=== PATIENT | male | born 1945 ===

== ENCOUNTER 2020-11-16 07:58 | Outpatient (REF) | payer MEDICARE, SELFPAY ==
[2020-11-16 09:27] LABS: Alanine Aminotransferase 26 U/L (0-40); Albumin Level 4.4 g/dL (3.5-5.0); Alkaline Phosphatase 131 U/L (39-117); Anion Gap 11 (12-20); Aspartate Amino Transferase 24 U/L (5-37); Bilirubin Total 0.6 mg/dL (0.0-1.0); Blood Urea Nitrogen 11 mg/dL (9-16); Calcium 8.8 mg/dL (8.4-10.2); Carbon Dioxide 28 mmol/L (22-29); Chloride 102 mmol/L (96-108); Cholesterol 170 mg/dL; Estimated Glomerular Filt Rate > 60; Glucose Fasting 178 mg/dL (60-99); HDL Cholesterol 40 mg/dL; LDL Cholesterol Calculated 103 mg/dl; Potassium 4.6 mmol/L (3.3-5.1); Sodium 136 mmol/L (135-145); Total Protein 7.2 g/dL (6.5-8.0); Triglycerides 137 mg/dL
== END 2020-11-16 07:59 | disposition home or self-care (01) ==
LOC: HO.LAB 07:58
PROVIDERS: PCP Internal Medicine; Visit Provider Internal Medicine
DX: E11.9 Type 2 diabetes mellitus without complications (principal)
CPT/HCPCS: 36415; 80053; 80061

== ENCOUNTER 2020-12-30 07:59 | Outpatient (REF) | payer MEDICARE, SELFPAY ==
[2020-12-30 08:30] LABS: COVID-19 Test Negative (Negative)
== END 2020-12-30 08:00 | disposition home or self-care (01) ==
LOC: HO.LAB 07:59
PROVIDERS: Visit Provider Internal Medicine
DX: Z20.822 Contact with and (suspected) exposure to COVID-19 (principal)
CPT/HCPCS: 36415; 87635; C9803

== ENCOUNTER 2021-06-11 08:32 | Outpatient (REF) | payer MEDICARE, SELFPAY ==
[2021-06-11 09:43] LABS: Prostate Specific Antigen 0.31 ng/mL (<0.05-4.0)
== END 2021-06-11 08:33 | disposition home or self-care (01) ==
LOC: HO.LAB 08:32
PROVIDERS: PCP Internal Medicine; Visit Provider Nurse Practitioner Family
DX: Z12.5 Encounter for screening for malignant neoplasm of prostate (principal)
CPT/HCPCS: 36415; 84153

== ENCOUNTER 2021-07-23 09:25 | Outpatient (REF) | payer MEDICARE, SELFPAY ==
--- NOTE | ~2021-07-23 | XR_ITS ---
EXAMINATION: XR HIP, LEFT CLINICAL INFORMATION: Trochanteric bursitis COMPARISON: None TECHNIQUE: Two views of the left hip. FINDINGS: Bone alignment is normal. No fracture or dislocation is seen. The joint space is normal. Soft tissues are normal. XR/XR hip LT min 2V IMPRESSION: Normal left hip.
== END 2021-07-23 09:26 | disposition home or self-care (01) ==
LOC: HO.XRAY 09:25
PROVIDERS: PCP Internal Medicine; Visit Provider Internal Medicine
DX: M70.62 Trochanteric bursitis, left hip (principal)
CPT/HCPCS: 73502

== ENCOUNTER → 2021-08-18 10:04 | Outpatient (BNVA) | payer MEDICARE, SELFPAY | PROVIDERS: PCP Internal Medicine; Visit Provider Orthopaedic Surgery | DX: M53.3 Sacrococcygeal disorders, not elsewhere classified (principal); G89.29 Other chronic pain | CPT/HCPCS: 99202 ==

== ENCOUNTER 2021-09-21 09:08 | Outpatient (REF) | payer MEDICARE, SELFPAY ==
[2021-09-21 10:43] LABS: COVID-19 Test Positive (Negative); IDNOW Serial# 16C4AD1C
== END 2021-09-21 09:09 | disposition home or self-care (01) ==
LOC: HO.LAB 09:08
PROVIDERS: Visit Provider Internal Medicine
DX: Z20.822 Contact with and (suspected) exposure to COVID-19 (principal)
CPT/HCPCS: 87635; C9803

== ENCOUNTER 2021-10-03 08:15 | Outpatient (REF) | payer MEDICARE, SELFPAY ==
[2021-10-03 11:29] LABS: Binax Internal Control QC Valid; Binax Now Covid-19 Ag Negative (Negative)
== END 2021-10-03 08:16 | disposition home or self-care (01) ==
LOC: HO.LAB 08:15
PROVIDERS: Visit Provider Internal Medicine
DX: Z20.822 Contact with and (suspected) exposure to COVID-19 (principal)
CPT/HCPCS: C9803

== ENCOUNTER 2022-05-01 09:16 | Outpatient (REF) | payer OTHER, SELFPAY ==
[2022-05-01 10:16] LABS: Alanine Aminotransferase 21 U/L (0-40); Albumin Level 4.2 g/dL (3.5-5.0); Alkaline Phosphatase 126 U/L (39-117); Anion Gap 12 (12-20); Aspartate Amino Transferase 21 U/L (5-37); Bilirubin Total 0.4 mg/dL (0.0-1.0); Blood Urea Nitrogen 11 mg/dL (9-16); Carbon Dioxide 28 mmol/L (22-29); Chloride 102 mmol/L (96-108); Cholesterol 155 mg/dL; Estimated Glomerular Filt Rate > 60; Glucose Fasting 173 mg/dL (60-99); HDL Cholesterol 43 mg/dL; LDL Cholesterol Calculated 96 mg/dl; Potassium 4.9 mmol/L (3.3-5.1); Sodium 137 mmol/L (135-145); Total Protein 6.9 g/dL (6.5-8.0); Triglycerides 80 mg/dL
== END 2022-05-01 09:17 | disposition home or self-care (01) ==
LOC: HO.LAB 09:16
PROVIDERS: PCP Internal Medicine; Visit Provider Internal Medicine
DX: E11.65 Type 2 diabetes mellitus with hyperglycemia (principal); E78.5 Hyperlipidemia, unspecified
CPT/HCPCS: 36415; 80053; 80061

== ENCOUNTER 2022-08-25 08:08 | Outpatient (REF) | payer OTHER, SELFPAY ==
[2022-08-25 09:25] LABS: Prostate Specific Antigen 0.38 ng/mL (<0.05-4.0)
[2022-08-25 09:40] LABS: Creatinine Urine 62.94 mg/dL; Microalbumin Urine < 5.0 mg/L
== END 2022-08-25 08:09 | disposition home or self-care (01) ==
LOC: HO.LAB 08:08
PROVIDERS: PCP Internal Medicine; Visit Provider Nurse Practitioner Family
DX: E11.9 Type 2 diabetes mellitus without complications (principal); Z12.5 Encounter for screening for malignant neoplasm of prostate
CPT/HCPCS: 36415; 82043; 84153

== ENCOUNTER 2022-12-16 07:40 | Outpatient (REF) | payer OTHER, SELFPAY ==
[2022-12-16 08:46] LABS: Estimated Average Glucose 143 mg/dL; Hemoglobin A1c % 6.6 %
[2022-12-16 09:08] LABS: Alanine Aminotransferase 22 U/L (0-40); Albumin Level 4.3 g/dL (3.5-5.0); Alkaline Phosphatase 109 U/L (39-117); Anion Gap 12 (12-20); Aspartate Amino Transferase 25 U/L (5-37); Bilirubin Total 0.6 mg/dL (0.0-1.0); Blood Urea Nitrogen 12 mg/dL (9-16); Calcium 9.2 mg/dL (8.4-10.2); Carbon Dioxide 28 mmol/L (22-29); Chloride 106 mmol/L (96-108); Cholesterol 158 mg/dL; Estimated Glomerular Filt Rate > 60; Glucose Fasting 94 mg/dL (60-99); HDL Cholesterol 38 mg/dL; LDL Cholesterol Calculated 103 mg/dl; Potassium 4.8 mmol/L (3.3-5.1); Sodium 141 mmol/L (135-145); Total Protein 6.8 g/dL (6.5-8.0); Triglycerides 89 mg/dL
[2022-12-16 09:26] LABS: TSH reflex Free T4 2.56 uIU/mL (0.32-4.0)
== END 2022-12-16 07:41 | disposition home or self-care (01) ==
LOC: HO.LAB 07:40
PROVIDERS: PCP Internal Medicine; Visit Provider Nurse Practitioner Family
DX: E11.65 Type 2 diabetes mellitus with hyperglycemia (principal); E78.00 Pure hypercholesterolemia, unspecified
CPT/HCPCS: 36415; 80053; 80061; 83036; 84443

== ENCOUNTER 2023-04-12 14:10 | Emergency (ER) | payer OTHER, SELFPAY ==
[2023-04-12 14:36] VITALS: BP 150/66; PULSE 73; RESP 18; TEMP 36.9; O2SAT 97; BMI 30.8
--- NOTE | 2023-04-12 14:38 | ED_ITS ---
HPI - General Adult General Chief complaint: General Medical Stated complaint: body aches sore throat fever Time Seen by Provider: 04/12/23 15:52 Source: patient and family Mode of arrival: ambulatory Limitations: no limitations History of Present Illness HPI narrative: 77-year-old male with history of obesity, HLD, HTN, DM, GERD who presents to the ER for evaluation of 6 days of not feeling well. He reports subjective fevers and chills at home along with body aches, headache, abdominal discomfort and decreased p.o. intake. He is here with for other family members who have similar symptoms. He states he was the 1st 1 to get ill. He is vaccinated for COVID-19 x2. He denies any shortness of breath or chest pain. No vomiting or diarrhea. MD complaint: COVID symptoms Onset (ago): day(s) (6) Location: head, back and abdomen Radiation: non-radiation Severity: moderate Quality: aching Pain Consistency: intermittent Relieving factors: none Exacerbating factors: none Associated symptoms: fever/chills, headaches, loss of appetite, malaise and weakness Treatments prior to arrival: none Related Data Previous Rx's Medication Instructions Recorded diclofenac sodium 1 % topical gel 4 g topical QID #100 grams 07/15/21 (Voltaren Arthritis Pain) blood sugar diagnostic (Accu-Chek 1 strip miscellaneous QID #200 12/14/21 SmartView Test Strips) strips pen needle, diabetic 31 gauge x 1 ea subcut QID 25 days #100 ea 04/11/22 5/16 (BD Ultra-Fine Short Pen Needle) aspirin 81 mg tablet,delayed 81 mg PO DAILY 90 days #90 tabs 06/13/22 release (Adult Low Dose Aspirin) blood pressure monitor #1 ea 06/13/22 omeprazole 20 mg capsule,delayed 20 mg PO DAILY 90 days #90 caps 06/13/22 release Humalog KwikPen Insulin 100 15 unit (0.15 mL) subcut TID 30 09/27/22 unit/mL subcutaneous (insulin days #3 mL lispro) insulin glargine 100 unit/mL (3 48 unit (0.48 mL) subcut QPM 30 09/27/22 mL) subcutaneous pen (Lantus days #14.4 mL Solostar U-100 Insulin) metoprolol succinate 25 mg 25 mg PO DAILY 90 days #90 tabs 02/01/23 tablet,extended release 24 hr lisinopril 40 mg tablet 40 mg PO DAILY #90 tabs 02/12/23 rosuvastatin 10 mg tablet 10 mg PO DAILY 90 days #90 tabs 03/09/23 oxycodone-acetaminophen 5 mg-325 1 tab PO Q8H PRN pain 30 days #90 03/16/23 mg tablet tabs amlodipine 2.5 mg tablet 2.5 mg PO DAILY 90 days #90 tabs 04/01/23 Allergies Allergy/AdvReac Type Severity Reaction Status Date / Time No Known Allergies Allergy Verified 12/27/22 15:43 Review of Systems Review of Systems: Yes all other systems are reviewed and are negative [facility] Past Medical History Medical History BMI 31.0-31.9,adult Diabetes mellitus Essential hypertension GERD (gastroesophageal reflux disease) Lumbar degenerative disc disease Surgical History History of cholecystectomy History of eye surgery Family History Family History Father Throat cancer Mother Diabetes Myocardial infarction Sister Cancer Brother Myocardial infarction Cancer Social History Social History Housing: House Alcohol intake: never Patient Tobacco Use Status: Never used Tobacco e-Cigarette/Vaping Use: Never Used Second Hand Smoke Exposure: No Advance Directives: No Advance Directives Information Provided: No service: No Current occupational status: disabled Cognitive needs: No Hearing needs: No Vision needs: Yes Physical Exam ED Vital Signs: Vital Signs - 24 hr 04/12/23 14:36 Temperature 98.4 F Pulse Rate 73 Respiratory Rate 18 Blood Pressure 150/66 H Pulse Oximetry 97 Oxygen Delivery Method Room Air BMI result Body Mass Index 30.8 Appearance: Alert. Oriented X3. No acute distress. Head: normocephalic, atraumatic. Eyes: Pupils equal, round and reactive to light. ENT: Pharynx normal. No tonsillar swelling or exudate. Neck: Normal inspection. Neck supple. CVS: Normal heart rate and rhythm. Pulses normal. Respiratory: No respiratory distress. Breath sounds normal. Abdomen: Soft and nontender. +BS x4 Skin: Skin warm and dry. Normal skin color. Normal skin turgor. No rashes. Extremities: No lower extremity edema. No joint swelling. Neuro/psych: Oriented X 3. grossly normal, nonfocal. Normal speech and cognition. Course Course Course Narrative: This is an RME: Additional HPI, ROS, PE not included below will be deferred to primary provider. Thi is a [id number], with a history of HTN and DM, presenting with complaints of fevers, chills, generalized abdominal pain. No nausea, vomiting, diarrhea. Here with 5 other family members with similar symptoms. VSS. Plan: COVID swab, strep test Medical Decision Making Medical Decision Making [facility] Narrative: 77-year-old male with multiple medical problems including HTN, HLD, dm who presents to the ER for evaluation of 6 days of feeling unwell. Vital signs are stable and physical exam is unremarkable. Patient was found to have COVID-19. He is vaccinated. He does not qualify for paxlovid given duration of symptoms. at this time patient is stable for discharge home with supportive care and outpatient follow-up. We discussed return precautions and patient expressed understanding. Differential Diagnosis Differential Diagnoses: The differential diagnosis associated with the present ation includes strep, covid, flu, rsv, other viral syndrome, bronchitis, pneumonia, dehydration Admission/Observation Consideration of admission/observation: Escalation of care including admission/observation considered Elderly male with multiple medical problems and positive COVID-19 status, considered observation Lab Data [facility] Lab Attestation statement: I reviewed the patient's lab results. Labs: Lab Results 04/12/23 04/12/23 Range/Units 15:13 15:13 COVID-19 (MERY) Positive A (Negative) COVID-19 Clin Com See Note S. pyogenes GrpA JOSE Negative (Negative) Independent Historian Clinical information obtained from an independent historian. History obtained from or confirmed by: Spouse and Other ( adult family members) External Record Review External record reviewed: Outpatient record, Prior outpatient labs and Prior outpatient radiology Tests considered The following testing was considered but not selected: basic labs and chest x-ray considered however not performed today as physical exam and vital signs were normal Prescription Management I considered prescription management with: Antiviral Chronic Conditions Patient?s care impacted by: Diabetes and Hypertension Critical Care Time Critical Care Time Critical Care Time: No Discharge Plan Discharge Clinical Impression: COVID-19 Patient Disposition: Home, Self-Care Instructions: COVID-19 (Coronavirus Disease 2019) (ED) Additional Instructions: You were found to be COVID-19 POSITIVE today. Your exam and oxygen levels were normal. Rest. Drink plenty of fluids. Do not go out in public while you are not feeling well. Take over the counter cold/flu medications as needed for your symptoms. Take Tylenol and/or Motrin as needed for fevers and body aches. Follow up with your doctor as needed. If you develop new or worsening symptoms call 911 or come back to the ER for further evaluation. Prescriptions: No Action Accu-Chek SmartView Test Strip Strip 1 strip miscellaneous QID Qty: 200 11RF pen needle, diabetic [BD Ultra-Fine Short Pen Needle] 31 gauge x 5/16 needle 1 ea subcut QID 25 Days Qty: 100 11RF metoprolol succinate 25 mg tablet extended release 24 hr 25 mg PO DAILY 90 Days Qty: 90 1RF lisinopril 40 mg tablet 40 mg PO DAILY Qty: 90 0RF rosuvastatin 10 mg tablet 10 mg PO DAILY 90 Days Qty: 90 1RF oxycodone-acetaminophen 5-325 mg tablet 1 tab PO Q8H PRN (Reason: pain) 30 Days Qty: 90 0RF amlodipine 2.5 mg tablet 2.5 mg PO DAILY 90 Days Qty: 90 0RF aspirin [Adult Low Dose Aspirin] 81 mg tablet,delayed release (DR/EC) 81 mg PO DAILY 90 Days Qty: 90 3RF omeprazole 20 mg capsule,delayed release(DR/EC) 20 mg PO DAILY 90 Days Qty: 90 2RF (DME) blood pressure monitor Kit See Rx Instructions .Route Qty: 1 0RF Rx Instructions: As directed diclofenac sodium [Voltaren Arthritis Pain] 1 % gel 4 g topical QID Qty: 100 1RF Rx Instructions: apply to L hip area insulin glargine [Lantus Solostar U-100 Insulin] 100 unit/mL (3 mL) insulin pen 48 unit subcut QPM 30 Days Qty: 14.4 11RF insulin lispro [Humalog KwikPen Insulin] 100 unit/mL insulin pen 15 unit subcut TID 30 Days Qty: 3 11RF Print Language: Greenlandic
[2023-04-12 15:45] LABS: COVID-19 Test Positive (Negative); IDNOW Serial# BCCEAD1C
[2023-04-12 15:59] LABS: IDNOW Serial# 08D9AD1C; Strep A Nucleic Acid Negative (Negative)
== END 2023-04-12 16:53 | disposition home or self-care (01) ==
PROVIDERS: Physician Assistant Medical; Emergency Provider Internal Medicine; PCP Internal Medicine
DX: U07.1 COVID-19 (principal); M79.10 Myalgia, unspecified site; R50.9 Fever, unspecified; Z79.899 Other long term (current) drug therapy
CPT/HCPCS: 87635; 87651; 99283

== ENCOUNTER 2024-01-26 09:51 | Emergency (ER) | payer OTHER, SELFPAY ==
[2024-01-26 10:14] VITALS: BP 135/63; PULSE 74; RESP 16; TEMP 36.6; O2SAT 97; BMI 30.1
--- NOTE | 2024-01-26 11:08 | ED_ITS ---
HPI - Ear Problem General Chief complaint: Ear Problems Stated complaint: broke q tip in r ear Time Seen by Provider: 01/26/24 10:14 Source: patient, RN notes reviewed and old records reviewed Mode of arrival: ambulatory Limitations: no limitations History of Present Illness HPI Narrative: 78 year old male with pmhx significant for GERD, essential hypertension, diabetes, lumbar DDD presents to the ED today for evaluation of foreign body in right ear. He states that prior to arrival in the ED this morning, the inside of his ear was itchy. He grabbed a Q-tip and gently attempted to itch the right ear canal. Endorses the cotton aspect of the distal Q-tip came off in his right ear. He did not attempt to remove the cotton. He did not stick the Q-tip in his ear after this came off. Denies hearing loss or decreased hearing. Denies discharge from the right ear. He does not have any other concerns in the ED today. Denies fevers, chills, sore throat, sob, cough. Related Data Previous Rx's ?Medication ?Instructions ?Recorded blood pressure monitor #1 ea 06/13/22 rosuvastatin 10 mg tablet 10 mg PO DAILY 90 days #90 tabs 05/31/23 omeprazole 20 mg capsule,delayed 20 mg PO DAILY 90 days #30 caps 08/12/23 release aspirin 81 mg tablet,delayed 81 mg PO DAILY 90 days #90 tabs 08/14/23 release (Adult Low Dose Aspirin) diclofenac sodium 1 % topical gel 4 g topical QID #100 grams 10/15/23 (Voltaren Arthritis Pain) blood sugar diagnostic (Accu-Chek 1 strip miscellaneous QID #200 11/14/23 SmartView Test Strips) strips blood sugar diagnostic (OneTouch #100 ea 12/14/23 Ultra Test strips) amlodipine 2.5 mg tablet 2.5 mg PO DAILY 90 days #90 tabs 12/31/23 Humalog KwikPen Insulin 100 15 unit (0.15 mL) subcut TID 30 01/01/24 unit/mL subcutaneous (insulin days #3 mL lispro) insulin glargine 100 unit/mL (3 48 unit (0.48 mL) subcut QPM 30 01/01/24 mL) subcutaneous pen (Lantus days #14.4 mL Solostar U-100 Insulin) lisinopril 40 mg tablet 40 mg PO DAILY #90 tabs 01/01/24 pen needle, diabetic 31 gauge x 1 ea subcut QID 25 days #100 ea 01/01/2401/30 (BD Ultra-Fine Short Pen Needle) oxycodone-acetaminophen 5 mg-325 1 tab PO Q8H PRN pain 30 days #90 01/14/24 mg tablet tabs metoprolol succinate 25 mg 25 mg PO DAILY 90 days #30 tabs 01/21/24 tablet,extended release 24 hr Allergies Allergy/AdvReac Type Severity Reaction Status Date / Time No Known Allergies Allergy Verified 01/26/24 10:15 Review of Systems Review of Systems: Constitutional: No fever, chills, fatigue, night sweats, weight changes ENT/Mouth: No ear pain, hearing loss, nasal congestion, sinus pain, rhinorrhea, sore throat, +FB in right ear Eyes: No eye pain, swelling, redness, vision changes, discharge Cardio: No chest pain, palpitations, HUNTER, orthopnea, peripheral edema Pulm: No SOB, cough, sputum, wheezing, dyspnea, hemoptysis GI: No nausea, vomiting, hematemesis, abdominal pain, diarrhea, constipation, hematochezia, melena : No irregular bleeding, dysuria, frequency, urgency, hesitancy, hematuria, flank pain, urinary flow changes, urinary incontinence or retention MSK: No back pain, neck pain, joint pain, myalgias Skin: No lesions, rashes Neuro: No weakness, numbness, paresthesias, LOC, dizziness, headache Psych: No anxiety/panic, depression, SI/HI, AH/VH All other systems reviewed and are negative. [facility] Past Medical History Attestation statement: The following information was validated with the patient. Source: old records reviewed and nursing notes reviewed Medical History GERD (gastroesophageal reflux disease) BMI 31.0-31.9,adult Essential hypertension Diabetes mellitus Lumbar degenerative disc disease Surgical History History of cholecystectomy History of eye surgery Family History Family History Father Throat cancer Mother Diabetes Myocardial infarction Sister Cancer Brother Myocardial infarction Cancer [facility] History Social History Housing: House Alcohol intake: never Patient Tobacco Use Status: Never used Tobacco e-Cigarette/Vaping Use: Never Used Second Hand Smoke Exposure: No Advance Directives: No Advance Directives Information Provided: No Do you have a plan to hurt others: No Plan service: No Current occupational status: disabled Cognitive needs: No Hearing needs: No Vision needs: Yes Physical Exam Vital Signs: Vital Signs: Last Vital Signs Temp 97.9 F 01/26/24 10:14 Pulse 74 01/26/24 10:14 Resp 16 01/26/24 10:14 BP 135/63 01/26/24 10:14 Pulse Ox 97 01/26/24 10:14 O2 Del Method Room Air 01/26/24 10:14 BMI result Body Mass Index 30.1 Vital signs stable Const: General: cooperative, healthy appearing, comfortable and no acute distress Orientation/consciousness: patient oriented x3 Limitations: no li mitations HEENT: Other: + No pain on manipulation of left pinna or tragus. No mastoid tenderness. Left EAC without erythema, edema or discharge. No foreign body noted to EAC. TM intact without erythema, effusion, or bulging. + No pain on manipulation of right pinna or tragus. No mastoid tenderness. Right EAC without erythema, edema or discharge. Small piece of cotton from the Q-tip noted to distal right EAC. TM intact without erythema, effusion, or bulging. Head: Yes normal to inspection, Yes No palpable skull fracture present, Yes normocephalic and Yes atraumatic Eyes: General: appearance normal, both eyes and all related structures Conjunctivae: conjunctivae normal Sclerae: sclerae normal Pupils: Equal, round and reactive pupils present Neck: Neck: Yes normal visual inspection, Yes full ROM and Yes no lymphadenopathy Resp: Effort & Inspection: normal respiratory effort and able to speak in complete sentences Auscultation: clear to auscultation bilaterally Cardio: Rate: regular rate Rhythm: regular rhythm Skin: General skin exam: no rashes or lesions noted Neuro: General: patient oriented x3 and gait normal Cranial nerves: Yes Equal, round and reactive pupils present Course Course Course Narrative: 1120-- cotton successfully removed from right EAC. Patient tolerated this well. There were no complications. Upon removal of cotton, right EAC without erythema, edema or discharge. TM intact without perforation. At this time I feel patient is stable for discharge. Advised to stop using Q-tips. Patient has remained stable throughout ED visit today. Discussed worrisome signs and symptoms and when to return to the ED. All questions answered at this time. Patient is agreeable with disposition and stable for discharge. Procedures FB Removal Ear Location: ear canal (R) Foreign Body Suspected: other (cotton) TM intact pre-procedure: yes Foreign Body Removed: yes Foreign Body Removal Technique: forceps Tympanic Membrane Intact Post Procedure: Yes Patient Tolerated Procedure: well Complications: none Medical Decision Making Medical Decision Making MDM Narrative: 78 year old male with pmhx significant for GERD, essential hypertension, diabetes, lumbar DDD presents to the ED today for evaluation of foreign body in right ear. Vital signs stable, afebrile. He is nontoxic-appearing and in no acute distress. Lying comfortably on the exam bed. On exam of right ear, there is no pain on manipulation of right pinna or tragus. No mastoid tenderness. Right EAC without erythema, edema or discharge. Small piece of cotton from the Q-tip noted to distal right EAC. TM intact without erythema, effusion, or bulging. Differential diagnosis includes ear foreign body, TM perforation. Low suspicion for otitis media, otitis externa, malignant otitis externa, mastoiditis. Plan for foreign body removal and disposition. Differential Diagnosis Differential Diagnoses: The differential diagnosis associated with the presentation includes As above Admission/Observation Not indicated Independent Historian Clinical information obtained from an independent historian. History obtained from or confirmed by: Spouse External Record Review External record reviewed: Inpatient record, Office record, Outpatient record, Prior outpatient labs, Prior outpatient radiology, Primary care record and Outside ED record Prescription Management I considered prescription management with: Pain Medication Social Determinants Patient?s care significantly limited by Social Determinants of Health including: Other Social Determinant of Health Critical Care Time Critical Care Time Critical Care Time: No Discharge Plan Discharge Clinical Impression: Foreign body of ear, right Patient Disposition: Home, Self-Care Instructions: Ear Foreign Body (ED) Additional Instructions: You were seen in the ED today after getting the cotton part of a Q-tip stuck in your right ear. This was removed in the emergency department without complication. Please do not stick Q-tips in your ear. This can damage your ear and your ear drum. Follow-up with your PCP as needed. Return with new or worsening symptoms. In the case of an emergency call 911. Prescriptions: No Action rosuvastatin 10 mg tablet 10 mg PO DAILY 90 Days Qty: 90 1RF omeprazole 20 mg capsule,delayed release(DR/EC) 20 mg PO DAILY 90 Days Qty: 30 0RF aspirin [Adult Low Dose Aspirin] 81 mg tablet,delayed release (DR/EC) 81 mg PO DAILY 90 Days Qty: 90 3RF diclofenac sodium [Voltaren Arthritis Pain] 1 % gel 4 g topical QID Qty: 100 1RF Rx Instructions: apply to L hip area Accu-Chek SmartView Test Strip Strip 1 strip miscellaneous QID Qty: 200 11RF (DME) OneTouch Ultra Test Strip See Rx Instructions .Route Qty: 100 3RF Rx Instructions: Use 1 test strip four times a day amlodipine 2.5 mg tablet 2.5 mg PO DAILY 90 Days Qty: 90 0RF insulin lispro [Humalog KwikPen Insulin] 100 unit/mL insulin pen 15 unit subcut TID 30 Days Qty: 3 11RF insulin glargine [Lantus Solostar U-100 Insulin] 100 unit/mL (3 mL) insulin pen 48 unit subcut QPM 30 Days Qty: 14.4 11RF lisinopril 40 mg tablet 40 mg PO DAILY Qty: 90 1RF pen needle, diabetic [BD Ultra-Fine Short Pen Needle] 31 gauge x 5/16 needle 1 ea subcut QID 25 Days Qty: 100 11RF oxycodone-acetaminophen 5-325 mg tablet 1 tab PO Q8H PRN (Reason: pain) 30 Days Qty: 90 0RF metoprolol succinate 25 mg tablet extended release 24 hr 25 mg PO DAILY 90 Days Qty: 30 0RF (DME) blood pressure monitor Kit See Rx Instructions .Route Qty: 1 0RF Rx Instructions: As directed Print Language: Tajik
[2024-01-26 11:43] VITALS: BP 141/82; PULSE 76; RESP 18; TEMP 36.2; O2SAT 99
== END 2024-01-26 11:44 | disposition home or self-care (01) ==
PROVIDERS: Emergency Provider Student in an Organized Health Care Education/Training Program; PCP Internal Medicine
DX: T16.1XXA Foreign body in right ear, initial encounter (principal); W44.9XXA Unspecified foreign body entering into or through a natural orifice, initial encounter; Y93.9 Activity, unspecified; Y92.9 Unspecified place or not applicable; Y99.9 Unspecified external cause status; I10 Essential (primary) hypertension
CPT/HCPCS: 69200; 99282; 99284

== ENCOUNTER 2024-02-05 11:31 | Emergency (ER) | payer OTHER, SELFPAY ==
--- NOTE | ~2024-02-05 | XR_ITS ---
EXAMINATION: XR CHEST, 2 VIEWS CLINICAL INFORMATION: Cough COMPARISON: 03/08/2009 TECHNIQUE: PA and lateral views of the chest were obtained. FINDINGS: Lungs are clear. No consolidation, pneumothorax, or pleural effusion. Cardiac and mediastinal contours are normal. Pulmonary vasculature is unremarkable. Trachea is midline. Cholecystectomy clips are present in the right upper quadrant. Mild hyperkyphosis with degenerative disc disease in the midthoracic spine. No acute osseous findings.. XR/XR chest 2V IMPRESSION: No acute cardiopulmonary findings.
[2024-02-05 11:46] VITALS: BP 140/56; PULSE 80; RESP 16; TEMP 37.2; O2SAT 96; BMI 30.6
--- NOTE | 2024-02-05 11:48 | ED.GENADULT ---
HPI - General Adult General Chief complaint: Upper Respiratory Symptoms Stated complaint: Body aches/Cough Time Seen by Provider: 02/05/24 12:02 Source: patient, family (Patient's ) and furnace operator and tender Mode of arrival: ambulatory Limitations: language barrier (marketing account manager used ) History of Present Illness ED Provider: Joann Aguilar PA-C HPI narrative: 78 year old arabic-speaking male with PMH significant for bilateral cataracts with progressive vision loss, type 2 diabetes, and essential HTN, presents with complaints of 2 days of non-productive cough. The patient states he noticed symptoms began after being outside in the rain without a jacket. He describes the cough as worsening and kept him up the entire night last night. He endorses associated body pain due to coughing. He states cough has exacerbated chronic low back pain. Endorses associated chills after turning on AC in an attempt to help relieve cough. He has not taken any OTC medications, states he has tried allyssa lemon tea with minimal relief. He denies fevers, facial pressure, sore throat, chest pain, abdominal pain, changes in urination, or paresthesias. He denies sick contacts. Denies tobacco use or COPD. Describes resolved childhood asthma. MD complaint: Non-productive cough Onset (ago): day(s) Associated symptoms: denies other symptoms Related Data Previous Rx's ?Medication ?Instructions ?Recorded blood pressure monitor #1 ea 06/13/22 rosuvastatin 10 mg tablet 10 mg PO DAILY 90 days #90 tabs 05/31/23 omeprazole 20 mg capsule,delayed 20 mg PO DAILY 90 days #30 caps 08/12/23 release aspirin 81 mg tablet,delayed 81 mg PO DAILY 90 days #90 tabs 08/14/23 release (Adult Low Dose Aspirin) diclofenac sodium 1 % topical gel 4 g topical QID #100 grams 10/15/23 (Voltaren Arthritis Pain) blood sugar diagnostic (Accu-Chek 1 strip miscellaneous QID #200 11/14/23 SmartView Test Strips) strips amlodipine 2.5 mg tablet 2.5 mg PO DAILY 90 days #90 tabs 12/31/23 Humalog KwikPen Insulin 100 15 unit (0.15 mL) subcut TID 30 01/01/24 unit/mL subcutaneous (insulin days #3 mL lispro) insulin glargine 100 unit/mL (3 48 unit (0.48 mL) subcut QPM 30 01/01/24 mL) subcutaneous pen ( #14.4 mL Solostar U-100 Insulin) lisinopril 40 mg tablet 40 mg PO DAILY #90 tabs 01/01/24 pen needle, diabetic 31 gauge x 1 ea subcut QID 25 days #100 ea 01/01/24 5/16 (BD Ultra-Fine Short Pen Needle) oxycodone-acetaminophen 5 mg-325 1 tab PO Q8H PRN pain 30 days #90 01/14/24 mg tablet tabs metoprolol succinate 25 mg 25 mg PO DAILY 90 days #30 tabs 01/21/24 tablet,extended release 24 hr blood sugar diagnostic (OneTouch #100 ea 02/04/24 Ultra Test strips) benzonatate 100 mg capsule 100 mg PO TID PRN cough #20 caps 02/05/24 Allergies Allergy/AdvReac Type Severity Reaction Status Date / Time No Known Allergies Allergy Verified 02/05/24 11:47 Review of Systems Review of Systems: Yes all other systems are reviewed and are negative [facility] Past Medical History Medical History GERD (gastroesophageal reflux disease) BMI 31.0-31.9,adult Essential hypertension Diabetes mellitus Lumbar degenerative disc disease Surgical History History of cholecystectomy History of eye surgery Family History Family History Father Throat cancer Mother Diabetes Myocardial infarction Sister Cancer Brother Myocardial infarction Cancer Social History Social History Housing: House Alcohol intake: never Patient Tobacco Use Status: Never used Tobacco e-Cigarette/Vaping Use: Never Used Second Hand Smoke Exposure: No Advance Directives: No Advance Directives Information Provided: No service: No Current occupational status: disabled Cognitive needs: No Hearing needs: No Vision needs: Yes Physical Exam ED Vital Signs: Vital Signs - 24 hr 02/05/24 11:46 02/05/24 13:53 Temperature 98.9 F 98.4 F Pulse Rate 80 76 Respiratory Rate 16 16 Blood Pressure 140/56 H 162/78 H Pulse Oximetry 96 95 Oxygen Delivery Method Room Air Room Air BMI result Body Mass Index 30.6 Appearance: Alert. Oriented X3. No acute distress. Head: normocephalic, atraumatic. Eyes: Pupils equal, round and reactive to light. ENT: Pharynx normal. No tonsillar swelling or exudate. Neck: Normal inspection. Neck supple. CVS: Normal heart rate and rhythm. Pulses normal. Respiratory: No respiratory distress. Breath sounds normal. Abdomen: Soft and nontender. Skin: Skin warm and dry. Normal skin color. Normal skin turgor. No rashes. Extremities: No lower extremity edema. No joint swelling. Neuro/psych: Oriented X 3. No motor deficit. No sensory deficit. CN II-XII intact. Normal speech and cognition. Course Course Course Narrative: This is a Rapid Medical Examination (RME) performed by Dominick Webster PA-C in triage. Full HPI, ROS, assessment and treatment plan per primary provider in the Main ED. 78 yo male hx of T2DM, HTN, hypercholesterolemia, GERD here for eval of cough and body aches. x3 days. no sputum production. denies recent travel/ long car rides. denies sick contacts. denies fever, chills, sore throat, chest pain, sob, hemoptysis. no otc meds at home. actively coughing. lungs cta. Plan: viral serology, cxr Medical Decision Making Medical Decision Making [facility] Narrative: 78 year old arabic-speaking male with PMH significant for bilateral cataracts with progressive vision loss, type 2 diabetes, and essential HTN, presents with complaints of 2 days of non-productive cough. HPI and physical exam as noted above. O2 sat 96% on room air. Viral serology negative for COVID-19, influenza, and RSV. Chest x-ray revealed no acute cardiopulmonary findings. patient most likely has viral URI with cough. No pulmonary history, nonsmoker. No need for steroids or antibiotics at this time. Will give a prescription for Tessalon Perles. Stable for discharge. Differential Diagnosis Differential Diagnoses: The differential diagnosis associated with the presentation includes Viral upper respiratory infection with non-productive cough, pneumonia, COVID-19, influenza, RSV , Bronchitis Lab Data [facility] Lab Attestation statement: I reviewed the patient's lab results. Viral serology negative for COVID-19, influenza, and RSV. Labs: Lab Results 02/05/24 Range/Units 11:54 Influenza Type A (PCR) NEGATIVE (Negative) Influenza Type B (PCR) NEGATIVE (Negative) RSV RNA Qual (PCR) NEGATIVE (Negative) SARS-CoV-2 RNA (RT-PCR) NEGATIVE (Negative) Independent Interpretation I performed an independent interpretation of an: Plain X-Ray Interpretation: no focal infiltrate or evidence of acute pneumonia Radiology Impression Discussion of test interpretation with radiology: I have reviewed the radiologist's reading. Radiologist Impression: EXAMINATION: XR CHEST, 2 VIEWS CLINICAL INFORMATION: Cough COMPARISON: 03/08/2009 TECHNIQUE: PA and lateral views of the chest were obtained. FINDINGS: Lungs are clear. No consolidation, pneumothorax, or pleural effusion. Cardiac and mediastinal contours are normal. Pulmonary vasculature is unremarkable. Trachea is midline. Cholecystectomy clips are present in the right upper quadrant. Mild hyperkyphosis with degenerative disc disease in the midthoracic spine. No acute osseous findings.. XR/XR chest 2V IMPRESSION: No acute cardiopulmonary findings. Independent Historian Clinical information obtained from an independent historian. History obtained from or confirmed by: Spouse (Patient's ) External Record Review External record reviewed: Inpatient record, Office record and Outpatient record Prescription Management I considered prescription management with: Antibiotic and Other ( antitussive agent) Chronic Conditions Patient?s care impacted by: Diabetes Critical Care Time Critical Care Time Critical Care Time: No Discharge Plan Discharge Clinical Impression: Viral URI with cough Patient Disposition: Home, Self-Care Instructions: Upper Respiratory Infection (DC) Additional Instructions: Your chest x-ray was normal You tested negative for COVID, Flu and RSV Your symptoms are most likely due to another viral process. Take the prescribed medication as needed for cough. You can also take [id number] cough medication as needed. Rest and stay hydrated. Follow-up with your doctor as needed. If you develop new or worsening symptoms call 911 or come back to the ER for further evaluation. Prescriptions: New benzonatate 100 mg capsule 100 mg PO TID PRN (Reason: cough) Qty: 20 0RF No Action rosuvastatin 10 mg tablet 10 mg PO DAILY 90 Days Qty: 90 1RF omeprazole 20 mg capsule,delayed release(DR/EC) 20 mg PO DAILY 90 Days Qty: 30 0RF aspirin [Adult Low Dose Aspirin] 81 mg tablet,delayed release (DR/EC) 81 mg PO DAILY 90 Days Qty: 90 3RF diclofenac sodium [Voltaren Arthritis Pain] 1 % gel 4 g topical QID Qty: 100 1RF Rx Instructions: apply to L hip area Accu-Chek SmartView Test Strip Strip 1 strip miscellaneous QID Qty: 200 11RF amlodipine 2.5 mg tablet 2.5 mg PO DAILY 90 Days Qty: 90 0RF insulin lispro [Humalog KwikPen Insulin] 100 unit/mL insulin pen 15 unit subcut TID 30 Days Qty: 3 11RF insulin glargine [Lantus Solostar U-100 Insulin] 100 unit/mL (3 mL) insulin pen 48 unit subcut QPM 30 Days Qty: 14.4 11RF lisinopril 40 mg tablet 40 mg PO DAILY Qty: 90 1RF pen needle, diabetic [BD Ultra-Fine Short Pen Needle] 31 gauge x 5/16 needle 1 ea subcut QID 25 Days Qty: 100 11RF oxycodone-acetaminophen 5-325 mg tablet 1 tab PO Q8H PRN (Reason: pain) 30 Days Qty: 90 0RF metoprolol succinate 25 mg tablet extended release 24 hr 25 mg PO DAILY 90 Days Qty: 30 0RF (DME) OneTouch Ultra Test Strip See Rx Instructions .Route Qty: 100 3RF Rx Instructions: Use 1 test strip four times a day (DME) blood pressure monitor Kit See Rx Instructions .Route Qty: 1 0RF Rx Instructions: As directed Interventions: ED Discharge Assessment Last Done: 02/05/24 13:53 Discharge Date/Time: 02/05/24 13:54 Print Language: Serbian
[2024-02-05 12:42] LABS: Influenza A PCR NEGATIVE (Negative); Influenza B PCR NEGATIVE (Negative); Resp Syncy Virus RNA Qual PCR NEGATIVE (Negative); SARS COV2 PCR INHOUSE NEGATIVE (Negative)
[2024-02-05 13:53] VITALS: BP 162/78; PULSE 76; RESP 16; TEMP 36.9; O2SAT 95
== END 2024-02-05 13:54 | disposition home or self-care (01) ==
PROVIDERS: Physician Assistant Medical; Emergency Provider Emergency Medicine; PCP Internal Medicine
DX: J06.9 Acute upper respiratory infection, unspecified (principal); R05.9 Cough, unspecified; I10 Essential (primary) hypertension; E11.9 Type 2 diabetes mellitus without complications
CPT/HCPCS: 0241U; 71046; 99282; 99283